=== PATIENT | female | born 1945 | race Caucasian/White ===

== ENCOUNTER → 2020-01-27 10:43 | Outpatient (REF) | payer MEDICARE, SELFPAY | LOC: HO.SL 10:43 | PROVIDERS: Visit Provider Nurse Practitioner Family | DX: R53.82 Chronic fatigue, unspecified (principal); R40.0 Somnolence; E66.01 Morbid (severe) obesity due to excess calories; I27.20 Pulmonary hypertension, unspecified; I48.0 Paroxysmal atrial fibrillation | CPT/HCPCS: 95806 ==

== ENCOUNTER → 2020-02-07 08:00 | Outpatient (REF) | payer MEDICARE, SELFPAY ==
--- NOTE | 2020-02-07 14:12 | ECG_ITS ---
Hook-up date: 2020-02-07 15:36:00 Duration: 24:13:00 Test Indications: Persistent Atrial Fibrillation Medications: 41188 QRS complexes 37 Ventricular ectopics which represent <1 % of total QRS comp. * Supraventricular ectopics which represent % of total QRS comp. * Paced QRS complexs which represent % of total QRS comp. VENTRICULAR ECTOPY 37 Isolated 0 Bigeminal Cycles 0 Couplets 0 Runs 0 Beats in Runs * Beats LONGEST at * BPM at :: -- * Beats FASTEST at * BPM at :: -- SUPRAVENTRICULAR ECTOPY * Isolated * Couplets * Runs * Beats in Runs * Beats LONGEST at * BPM at :: -- * Beats FASTEST at * BPM at :: -- HEART RATES 42 MIN at 03:44:15 2020-02-08 66 AVG 108 MAX at 17:24:36 2020-02-07 LONGEST RR 2.1200 secs at 10:13:55 2020-02-08 S-T LEVELS Channel 1 - 128 mm at 15:36:00 2020-02-07 - 128 mm at 15:36:00 2020-02-07 Channel 2 - 128 mm at 15:36:00 2020-02-07 - 128 mm at 15:36:00 2020-02-07 Channel 3 - 128 mm at 03:45:51 -- - 128 mm at 03:45:51 Basic rhythm Atrial fibrillation No long pause or profound bradycardia Good rate control overall Rare Premature ventricular complexes No diary submitted Referred By: Noe Donis Overread By: NOE DONIS MD
== END ==
LOC: HO.CARD 08:00
PROVIDERS: Visit Provider Internal Medicine Cardiovascular Disease
DX: I48.19 Other persistent atrial fibrillation (principal)
CPT/HCPCS: 93226

== ENCOUNTER → 2020-02-07 14:56 | Outpatient (BNVA) | payer MEDICARE, SELFPAY | PROVIDERS: PCP Family Medicine; Referring Provider Family Medicine; Visit Provider Internal Medicine Cardiovascular Disease | DX: Z76.89 Persons encountering health services in other specified circumstances (principal) ==

== ENCOUNTER → 2020-02-15 | Outpatient (REF) | payer MEDICARE, SELFPAY | LOC: HO.CARD | PROVIDERS: PCP Family Medicine; Visit Provider Internal Medicine Cardiovascular Disease | DX: I48.19 Other persistent atrial fibrillation (principal) | CPT/HCPCS: 93226 ==

== ENCOUNTER → 2020-02-28 12:53 | Outpatient (BNVA) | payer MEDICARE, SELFPAY | PROVIDERS: PCP Family Medicine; Referring Provider Family Medicine; Visit Provider Internal Medicine Cardiovascular Disease | DX: I27.20 Pulmonary hypertension, unspecified (principal); I48.19 Other persistent atrial fibrillation; Z79.01 Long term (current) use of anticoagulants; Z79.899 Other long term (current) drug therapy | CPT/HCPCS: 99212 ==

== ENCOUNTER → 2020-03-15 13:00 | Outpatient (BNVA) | payer MEDICARE, SELFPAY | PROVIDERS: PCP Family Medicine; Visit Provider Internal Medicine | DX: G47.33 Obstructive sleep apnea (adult) (pediatric) (principal); E66.01 Morbid (severe) obesity due to excess calories; Z68.41 Body mass index [BMI] 40.0-44.9, adult; I27.20 Pulmonary hypertension, unspecified; I48.19 Other persistent atrial fibrillation; G47.34 Idiopathic sleep related nonobstructive alveolar hypoventilation | CPT/HCPCS: 99202 ==

== ENCOUNTER 2020-03-18 22:27 | Emergency (ER) | payer MEDICARE, SELFPAY ==
[2020-03-18 22:36] VITALS: BP 136/50; BP 144/90; PULSE 76; PULSE 85; RESP 18; TEMP 37; O2SAT 96; BMI 53.3
--- NOTE | 2020-03-18 23:03 | ECG_ITS ---
Test Reason : N/V Blood Pressure : / mmHG Vent. Rate : 069 BPM Atrial Rate : 070 BPM P-R Int : 000 ms QRS Dur : 118 ms QT Int : 432 ms P-R-T Axes : 000 -35 -03 degrees QTc Int : 462 ms Atrial fibrillation Nonspecific ST abnormality Left axis deviation Intra-ventricular conduction delay Possible Anterior infarct , age undetermined Abnormal ECG When compared with ECG of 19-AUG-2019 13:22, Nonspecific T wave abnormality, improved in Inferior leads Referred By: Daly Stringer Electronically Signed By:CURRY QUINTANA MD
--- NOTE | 2020-03-18 23:11 | ED_ITS ---
HPI - General Adult General Chief complaint: General Medical Stated complaint: vomiting Time Seen by Provider: 03/18/20 22:50 Source: patient Mode of arrival: EMS Limitations: no limitations History of Present Illness HPI narrative: patient comes to emergency room complaining of diarrhea. Patient states earlier today she started having diarrhea, started feeling lightheaded, was able to lower herself to the ground, did not hit her head, no loss of consciousness. Patient states she was feeling very weak, could not get up, had 3 episodes of diarrhea while she was on the floor and unable to get up. Patient's domestic partner is deaf and therefore could not hear the patient. Once the patient was found EMS was called. Patient complaining of chronic back pain, states nothing is new. Patient denies any chest pain or shortness of breath. Diarrhea started 2-3 hours prior to arrival. MD complaint: Diarrhea, fall Related Data Home Medications Medication Instructions Recorded Confirmed apixaban 5 mg tablet 5 mg PO BID 02/28/20 02/28/20 insulin lispro protamine-lispro 1 sliding scale dose SUBCUT 02/28/20 02/28/20 100 unit/mL (50-50) subcutaneous USEASDIRECTD susp lisinopril 10 mg tablet 10 mg PO DAILY 02/28/20 02/28/20 lovastatin 10 mg tablet 10 mg PO DAILY 02/28/20 02/28/20 metoprolol succinate 25 mg 25 mg PO DAILY 02/28/20 02/28/20 tablet,extended release 24 hr multivitamin 1 tab PO DAILY 02/28/20 02/28/20 Previous Rx's Medication Instructions Recorded clotrimazole [Antifungal 1 appl TOPICAL TID #28.4 g 03/19/20 (clotrimazole)] loperamide 2 mg PO Q4H PRN #20 tab 03/19/20 Allergies Allergy/AdvReac Type Severity Reaction Status Date / Time No Known Allergies Allergy Verified 03/15/20 13:22 [No Known Allergies*] Review of Systems Review of Systems: Constitutional : No Weight loss, No Fever, No Chills, No N ight Sweats, No Fatigue, No Malaise ENT/Mouth : No Hearing loss, No Ear Pain, No Nasal Congestion, No Sinus Pain, No Hoarseness, No sore throat, No Rhinorrhea, No Swallowing Difficulty Eyes: No Eye Pain, No Swelling, No Redness, No Foreign Body, No Discharge, No Vision Changes Cardiovascular : No Chest Pain, No SOB, No Dyspnea on Exertion, No Orthopnea, No Edema, No Palpitations Respiratory : No Cough, No Sputum, No Wheezing, No Smoke Exposure, No Dyspnea Gastrointestinal : No Nausea, No Vomiting, complaining of diarrhea, complaining of occasional abdominal cramping right before bowel movements Genitourinary : no irregular bleeding, No Dysuria, No Urinary Frequency, No Hematuria, No Urinary Incontinence, No Urgency, No Flank Pain, No Urinary Flow Changes, No Hesitancy Musculoskeletal : No joint pain, No Myalgias, No Joint Swelling Skin : chronic candidiasis under breasts and abdomen and groin Neuro : No Weakness, No Numbness, No Paresthesias, No Loss of Consciousness, No Dizziness, No Headache Psych : No Anxiety/Panic, No Depression, No SI/HI/AH/VH, No Social Issues, Heme/Lymph: No Bruising, No Bleeding,No Lymphadenopathy Endocrine : No Polyuria, No Polydipsia, No Temperature Intolerance PMFSH Past Medical History Medical History Morbid obesity Nocturnal hypoxemia SANTOS (obstructive sleep apnea) Persistent atrial fibrillation Pulmonary hypertension Surgical History Hx laparoscopic cholecystectomy Hx of appendectomy Hx of hernia repair Family History Family History Father HTN (hypertension) Mother Kidney failure Diabetes Social History Social History Alcohol intake: unknown Smoking Status: Never smoker Smoked in Last 30 Days: No Use of substances other than those prescribed or required for medical reasons: No Advance Directives: No Advance Directives Information Provided: Yes Physical Exam Vital Signs: Vital Signs: Last Vital Signs Temp 98.6 F 03/18/20 22:36 Pulse 76 03/18/20 22:36 Resp 18 03/18/20 22:36 BP 136/50 L 03/18/20 22:36 Pulse Ox 96 03/18/20 22:36 Body Mass Index 53.3 Appearance: Alert. Oriented X3. No acute distress. patient was completely covered in stool from chest to lower extremities Eyes: Pupils equal, round and reactive to light. ENT: Pharynx normal. Neck: Normal inspection. Neck supple. No lymph nodes noted. No crepitus CVS: rate controled slightly irregular heartbeats , S1 and S2 Respiratory: No respiratory distress. No Wheezing. No rales Abdomen: Soft and nontender. morbidly obese, no rigidity. No distention. good BS x4 Skin: patient has significant candidiasis under both breasts, under abdominal pannus, and inguinal area and thighs Extremities: very cold to touch, erythematous, slightly discolored toes, almost cyanotic especially on the left side Neuro: Oriented X 3. No motor deficit. No sensory deficit. Moving all extermities. No slurred speech. Course Course Course Narrative: I discussed the physical exam with the patient, concerned about her lower extremities. Patient states the blue discoloration and cold extremities are chronic for her, it is intermittent, states it has been ongoing for several years, sees Dr. Hylton I discussed the labs with the patient, patient states that she feels better, she has not had any diarrhea in the emergency room. Patient likely having a viral diarrheal illness. I discussed with the patient we could offer case management and physical therapy consult, patient declined both, patient states that she would like to go back home Medical Decision Making Lab Data Result diagrams: 03/18/20 23:16 03/18/20 23:16 Labs: Lab Results 03/18/20 03/18/20 03/18/20 Range/Units 23:16 23:16 23:16 WBC 12.6 H (4.8-10.8) X10*3/uL RBC 4.77 (4.20-5.50) X10*6/uL Hgb 14.2 (12.0-16.0) g/dl Hct 44.5 (37-47) % MCV 93.3 (80-98) fL MCH 29.8 (27.0-33.0) pg MCHC 31.9 (31.0-35.0) g/dl RDW 13.5 (11.0-16.0) % Plt Count 296 (160-400) X10*3/uL MPV 10.8 (9.4-12.3) fL Immature Gran % (Auto) 0.5 H (0.0-0.4) % Neut % (Auto) 90.9 H (45-73) % Lymph % (Auto) 3.5 L (20-40) % Andrew % (Auto) 4.5 (2-11) % Eos % (Auto) 0.4 (0-4) % Baso % (Auto) 0.2 (0-2) % Lymph # (Auto) 0.4 L (1.2-4.9) X10*3/uL Andrew # (Auto) 0.6 (0.1-1.2) X10*3/uL Eos # (Auto) 0.1 (0.0-0.4) X10*3/uL Baso # (Auto) 0.0 (0.0-0.2) X10*3/uL Abs Immat Gran (auto) 0.06 H (0.00-0.03) X10*3/uL Absolute Neuts (auto) 11.4 H (2.0-8.3) X10*3/uL Absolute Nucleated RBC 0.000 (0.0-0.012) X10*3/uL Nucleated RBC % (auto) 0.0 (0.0-0.2) /100WBC Smear Tech's Comments VERIFIED Sodium 140 (135-145) mmol/L Potassium 4.7 (3.3-5.1) mmol/l Chloride 107 (96-108) mmol/L Carbon Dioxide 22 (22-29) mmol/L Anion Gap 16 (12-20) BUN 32 H (9-16) mg/dL Creatinine 1.21 (0.5-1.4) mg/dL Estim Creat Clear Calc 58.2 Estimated GFR 44 Random Glucose 191 H (60-115) mg/dL Calcium 8.5 (8.4-10.2) mg/dL Total Bilirubin 0.6 (0.0-1.0) mg/dL Direct Bilirubin 0.3 (0.0-0.5) mg/dL AST 25 (5-31) U/L ALT 23 (0-31) U/L Alkaline Phosphatase 126 H (39-117) U/L Total Creatine Kinase 35 (26-140) U/L Troponin I High Sens 8.2 (<3.5-17.0) ng/L Total Protein 6.7 (6.5-8.0) g/dL Albumin 4.1 (3.5-5.0) g/dL Urine Color Urine Appearance Urine pH (5.0-8.0) Ur Specific [place] (1.005-1.025) Urine Protein (NEG-TRACE) MG/DL Urine Glucose (UA) (NEG) MG/DL Urine Ketones (NEG) MG/DL Urine Blood (NEG) Urine Nitrite (NEG) Ur Leukocyte Esterase (NEG) Urine RBC (0) /HPF Urine WBC (0-4) /HPF Ur Squamous Epith Cells /LPF Urine Bacteria /LPF Urine Mucus /LPF 03/18/20 Range/Units 23:16 WBC (4.8-10.8) X10*3/uL RBC (4.20-5.50) X10*6/uL Hgb (12.0-16.0) g/dl Hct (37-47) % MCV (80-98) fL MCH (27.0-33.0) pg MCHC (31.0-35.0) g/dl RDW (11.0-16.0) % Plt Count (160-400) X10*3/uL MPV (9.4-12.3) fL Immature Gran % (Auto) (0.0-0.4) % Neut % (Auto) (45-73) % Lymph % (Auto) (20-40) % Andrew % (Auto) (2-11) % Eos % (Auto) (0-4) % Baso % (Auto) (0-2) % Lymph # (Auto) (1.2-4.9) X10*3/uL Andrew # (Auto) (0.1-1.2) X10*3/uL Eos # (Auto) (0.0-0.4) X10*3/uL Baso # (Auto) (0.0-0.2) X10*3/uL Abs Immat Gran (auto) (0.00-0.03) X10*3/uL Absolute Neuts (auto) (2.0-8.3) X10*3/uL Absolute Nucleated RBC (0.0-0.012) X10*3/uL Nucleated RBC % (auto) (0.0-0.2) /100WBC Smear Tech's Comments Sodium (135-145) mmol/L Potassium (3.3-5.1) mmol/l Chloride (96-108) mmol/L Carbon Dioxide (22-29) mmol/L Anion Gap (12-20) BUN (9-16) mg/dL Creatinine (0.5-1.4) mg/dL Estim Creat Clear Calc Estimated GFR Random Glucose (60-115) mg/dL Calcium (8.4-10.2) mg/dL Total Bilirubin (0.0-1.0) mg/dL Direct Bilirubin (0.0-0.5) mg/dL AST (5-31) U/L ALT (0-31) U/L Alkaline Phosphatase (39-117) U/L Total Creatine Kinase (26-140) U/L Troponin I High Sens (<3.5-17.0) ng/L Total Protein (6.5-8.0) g/dL Albumin (3.5-5.0) g/dL Urine Color DARK YELLOW Urine Appearance CLEAR Urine pH 5.5 (5.0-8.0) Ur Specific [place] 1.025 (1.005-1.025) Urine Protein NEG (NEG-TRACE) MG/DL Urine Glucose (UA) NEG (NEG) MG/DL Urine Ketones 5 (NEG) MG/DL Urine Blood 1+ H (NEG) Urine Nitrite NEG (NEG) Ur Leukocyte Esterase NEG (NEG) Urine RBC 0-2 (0) /HPF Urine WBC 0-2 (0-4) /HPF Ur Squamous Epith Cells 2+ /LPF Urine Bacteria NONE /LPF Urine Mucus 1+ /LPF ECG Data Attestation: I personally reviewed and interpreted this ECG as follows: ( atrial fibrillation, rate control, heart rate 69, no ST segment depressions or elevations, no T-wave inversions) Discharge Plan Discharge Clinical Impression: Candidiasis, cutaneous Diarrhea Qualifiers: Diarrhea type: unspecified type Qualified Code(s): R19.7 - Diarrhea, unspecified Patient Disposition: Home, Self-Care Instructions: Acute Diarrhea (ED) Additional Instructions: please drink plenty of fluids, especially with electrolytes such as Gatorade and Powerade. Prescriptions: New clotrimazole [Antifungal (clotrimazole)] 1 % cream 1 appl topical TID Qty: 28.4 RF: 1 loperamide 2 mg tablet 2 mg PO Q4H PRN (Reason: loose stool) Qty: 20 RF: 0 No Action lisinopril 10 mg tablet 10 mg PO DAILY RF: 0 lovastatin 10 mg tablet 10 mg PO DAILY RF: 0 Humalog Mix 50-50 Insuln U-100 100 unit/mL (50-50) suspension 1 sliding scale dose subcut USEASDIRECTD RF: 0 multivitamin Tablet 1 tab PO DAILY RF: 0 metoprolol succinate 25 mg tablet extended release 24 hr 25 mg PO DAILY RF: 0 Eliquis 5 mg tablet 5 mg PO BID RF: 0
[2020-03-18 23:26] LABS: Basophils Percent Auto 0.2 % (0-2); Eosinophils Absolute Auto 0.1 X10*3/uL (0.0-0.4); Eosinophils Percent Auto 0.4 % (0-4); Hematocrit 44.5 % (37-47); Hemoglobin 14.2 g/dl (12.0-16.0); Imm Gran Abs Auto 0.06 X10*3/uL (0.00-0.03); Imm Gran Pct Auto 0.5 % (0.0-0.4); Lymphocytes Absolute Auto 0.4 X10*3/uL (1.2-4.9); Lymphocytes Percent Auto 3.5 % (20-40); MANUAL DIFF FLAG SCAN; Mean Corpuscular HGB Conc 31.9 g/dl (31.0-35.0); Mean Corpuscular Hemoglobin 29.8 pg (27.0-33.0); Mean Corpuscular Volume 93.3 fL (80-98); Mean Platelet Volume 10.8 fL (9.4-12.3); Monocytes Absolute Auto 0.6 X10*3/uL (0.1-1.2); Monocytes Percent Auto 4.5 % (2-11); Neutrophils Absolute Auto 11.4 X10*3/uL (2.0-8.3); Neutrophils Percent Auto 90.9 % (45-73); Platelet Count 296 X10*3/uL (160-400); Red Blood Count 4.77 X10*6/uL (4.20-5.50); Red Cell Distribution Width 13.5 % (11.0-16.0); SCAN SMEAR FLAG 1; White Blood Count 12.6 X10*3/uL (4.8-10.8)
[2020-03-18 23:27] LABS: Glucose Urine UA NEG (NEG); Leukocyte Esterase Urine NEG (NEG); Nitrite Urine NEG (NEG); PH 5.5 (5.0-8.0); Specific Gravity - Urine 1.025 (1.005-1.025); Urine Blood 1+ (NEG); Urine Ketones 5 MG/DL (NEG); Urine Protein NEG (NEG-TRACE)
[2020-03-18 23:31] LABS: Appearance Urine CLEAR; Color Urine DARK YELLOW
[2020-03-18 23:41] LABS: RBC Urine 0-2 /HPF (0); WBC Urine 0-2 /HPF (0-4)
[2020-03-18 23:42] LABS: Mucus Urine 1+ /LPF; Squamous Epithelial Cell Urine 2+ /LPF
[2020-03-18 23:44] LABS: Alanine Aminotransferase 23 U/L (0-31); Albumin Level 4.1 g/dL (3.5-5.0); Alkaline Phosphatase 126 U/L (39-117); Anion Gap 16 (12-20); Aspartate Amino Transferase 25 U/L (5-31); Bilirubin Direct 0.3 mg/dL (0.0-0.5); Bilirubin Total 0.6 mg/dL (0.0-1.0); Blood Urea Nitrogen 32 mg/dL (9-16); Calcium 8.5 mg/dL (8.4-10.2); Carbon Dioxide 22 mmol/L (22-29); Chloride 107 mmol/L (96-108); Creatinine Clr Calc Pharmacy 58.2; Estimated Glomerular Filt Rate 44; Glucose Random 191 mg/dL (60-115); Potassium 4.7 mmol/l (3.3-5.1); Sodium 140 mmol/L (135-145); Total Protein 6.7 g/dL (6.5-8.0)
[2020-03-18 23:46] LABS: SLIDE REVIEW VERIFIED
[2020-03-18] MEDS: Loperamide HCl 2 MG CAPSULE 4 MG PO (23:47)
[2020-03-18 23:49] LABS: Troponin-I High Sensitivity 8.2 ng/L (<3.5-17.0)
[2020-03-18] MEDS: 0.9 % Sodium Chloride 1,000 ML 999 ML IVCONT (23:50)
--- NOTE | 2020-03-18 23:57 | PC.NURSE ---
pt report she was have diarrhea today and n/v. She goes dizziness and guided herself to the floor. pt was covered in stool. yanet- care and personal care completed. pt change into hospital attire. Iv placed. labs and us collected and sent. medicated per emar. pt is placed on the telemonitor.
[2020-03-19 01:08] VITALS: BP 111/41; PULSE 84; RESP 16; O2SAT 98
--- NOTE | 2020-03-19 01:09 | PC.NURSE ---
pt is discharged however she has no one to let her in until morning when she texts her, being that her partner is deaf.
[2020-03-19 01:21] VITALS: BP 111/51; PULSE 84; RESP 18; TEMP 36.8; O2SAT 98
--- NOTE | 2020-03-19 03:48 | PC.NURSE ---
pt sleeping, no diarrhea at this time nor n/v.
[2020-03-19 06:00] VITALS: RESP 16
--- NOTE | 2020-03-19 06:47 | PC.NURSE ---
pt placed on the bed cerda and yanet care completed.
--- NOTE | 2020-03-19 07:40 | PC.NURSE ---
pt is a/o x 3 no sob/darling noted skin pink warm dry speaks in full sentences. c/o lower abd cramping. pt to be d/c'd home pt is waiting on her partner who is deaf at home to wake up because she forgot to bring a set of keys.
[2020-03-19 07:58] VITALS: BP 132/41; PULSE 75; RESP 13; TEMP 37; O2SAT 100
== END 2020-03-19 08:46 | disposition home or self-care (01) ==
PROVIDERS: Emergency Provider Emergency Medicine
DX: B37.2 Candidiasis of skin and nail (principal); R19.7 Diarrhea, unspecified; Z79.899 Other long term (current) drug therapy
CPT/HCPCS: 36415; 80048; 80076; 81001; 82550; 84484; 85025; 93005; 96360; 99284

== ENCOUNTER → 2020-07-27 10:17 | Outpatient (REF) | payer MEDICARE, SELFPAY ==
--- NOTE | 2020-07-27 10:20 | CA_ITS ---
Transthoracic Echocardiogram Patient (Last, First, Middle): Agnieszka Lomas, Gender: Female Date of : 1945 Age: 75 Procedure Date: 07/27/2020 Procedure Type: Transthoracic Echocardiogram Location: OP Height: 170.18 cm Weight: 135.17 kg BSA: 2.40 m2 Heart Rate: bpm BP: 143 / 63 mmHg Heel Sprayer: Referring MD: Neo Donis MD Symptoms: I27.20 - Pulmonary hypertension, unspecified Study Quality: Fair ECG Rhythm: Atrial Fibrillation Conclusions: - The right ventricular systolic pressure is 60 mmHg. Moderate pulmonary hypertension is present. Findings Tricuspid Valve Normal tricuspid valve structure. There is mild tricuspid valve regurgitation. The right ventricular systolic pressure is 60 mmHg. Moderate pulmonary hypertension is present. Venous The inferior vena cava is dilated and does not collapse with inspiration. Prior Study Comparison Changes noted compared to prior study dated: 11/27/2019. RVSP lower than prior study. Measurements Tricuspid Valve TR Pk Mati: 3.06 TR Pk Grad: 37.00 RA Press: 15.00 RVSP: 60.00 Updated in Other Vendor System with Status of Final Jhoan Prakash MD electronically signed on 07/29/2020 11:26:35 AM with status of Final
== END ==
LOC: HO.CARD 10:17
PROVIDERS: Visit Provider Internal Medicine Cardiovascular Disease
DX: I48.19 Other persistent atrial fibrillation (principal); I27.20 Pulmonary hypertension, unspecified
CPT/HCPCS: 93308

== ENCOUNTER → 2020-08-24 14:29 | Outpatient (BNVA) | payer MEDICARE, SELFPAY | PROVIDERS: Visit Provider Internal Medicine Cardiovascular Disease | DX: R60.0 Localized edema (principal); I27.20 Pulmonary hypertension, unspecified; I48.19 Other persistent atrial fibrillation; E66.01 Morbid (severe) obesity due to excess calories; G47.36 Sleep related hypoventilation in conditions classified elsewhere; Z68.42 Body mass index [BMI] 45.0-49.9, adult; Z99.81 Dependence on supplemental oxygen; Z79.899 Other long term (current) drug therapy | CPT/HCPCS: 99212 ==